=== PATIENT | female | born 1970 | race Hispanic/Latino ===

== ENCOUNTER 2021-12-22 08:23 | Outpatient (CLI) | payer BC ==
--- NOTE | 2021-12-22 15:11 | Nuclear Medicine Report ---
NUCLEAR MEDICINE BONE SCAN, WHOLE BODY INDICATION: C50.11. Right breast cancer, staging exam TECHNIQUE: 26.5 mCi of Tc-99m MDP were injected IV. Whole body images were obtained. COMPARISON: No recent relevant prior imaging study available. FINDINGS: Skeletal Structures/Lesions: Mild presumed degenerative uptake in the shoulders, knees, and feet/ankl es. There is more faint radiotracer uptake over the left hip/acetabulum. Soft Tissues: Normal. Kidneys: Normal, symmetric activity. Additional Findings: None. IMPRESSION: 1. Uptake over the left hip as outlined above. Recommend follow-up imaging to exclude any underlying metastasis. Otherwise there is scattered degenerative uptake. Signer Name: Rajesh Bingham MD Signed: 12/22/2021 3:07 PM Workstation Name: [id number]
== END 2021-12-22 08:24 | disposition home or self-care (01) ==
LOC: NM 08:23
PROVIDERS: ATTEND Internal Medicine Hematology & Oncology
DX: C50.111 Malignant neoplasm of central portion of right female breast (principal); M19.019 Primary osteoarthritis, unspecified shoulder
CPT/HCPCS: 78306; A9503